=== PATIENT | female | born 1965 | race Caucasian/White ===

== ENCOUNTER → 2018-07-28 | Outpatient (CLI) | payer BC ==
[~2018-07-28] MED LIST: GADOBUTROL 10 MMOL/10 ML VIAL ONE
== END | disposition home or self-care (01) ==
LOC: CFH 13:25
PROVIDERS: ATTEND Surgery
DX: C50.312 Malignant neoplasm of lower-inner quadrant of left female breast (principal); Z85.3 Personal history of malignant neoplasm of breast
CPT/HCPCS: 77049; A9585

== ENCOUNTER 2019-11-13 14:53 | Inpatient (IN) | payer BC ==
[~2019-11-13] VITALS: Ht 172.7 cm; Wt 85.3 kg
[2019-11-13] MEDS ORDERED: ONDANSETRON 2MG/ML, 2ML ONE (15:12)
[2019-11-13] MEDS ORDERED: ONDANSETRON 2MG/ML, 2ML IVPush ONE (15:30)
[2019-11-13] MEDS ORDERED: SODIUM CHLORIDE FLUSH 10ML SYR IVF ONE (15:30)
[2019-11-13] MEDS ORDERED: SODIUM CHLORIDE 0.9% 1,000ML IVBOLUS ONE ×2 (15:30→16:30)
[2019-11-13 15:39] LABS: BASOPHILS # (AUTO) 0.02 x10^3/uL (0-0.1); BASOPHILS % (AUTO) 0 % (0-1); EOSINOPHILS # (AUTO) 0.11 x10^3/uL (0-0.4); EOSINOPHILS % (AUTO) 1 % (1-7); LYMPHOCYTES # (AUTO) 0.74 x10^3/uL (1-3.4); LYMPHOCYTES % (AUTO) 5 % (22-44); MD NO; MEAN CORPUSCULAR HEMOGLOBIN 31.5 pg (27.0-34.8); MEAN CORPUSCULAR HGB CONC 32.7 g/dL (32.4-35.8); MEAN CORPUSCULAR VOLUME 96.3 fL (80-100); MEAN PLATELET VOLUME 7.8 fL (7.4-10.4); MONOCYTES # (AUTO) 0.99 x10^3/uL (0.2-0.8); MONOCYTES % (AUTO) 7 % (2-9); NEUTROPHILS # (AUTO) 13.35 x10^3/uL (1.8-6.8); NEUTROPHILS % (AUTO) 88 % (42-75); PLATELET COUNT 484 x10^3/uL (130-400); RED BLOOD COUNT 4.18 x10^6/uL (3.82-5.3); RED CELL DISTRIBUTION WIDTH 15.3 % (9.6-15.2)
[2019-11-13 15:43] LABS: MICROSCOPIC AUTO
--- NOTE | 2019-11-13 15:51 | NUR ---
PT CAME IN CO OF NVD. PT STATES SHE IS GETTING CHEMO FOR STAGE 4 METASTATIC CANCER. PT LAST CHEMO TREATMENT IS TUESDAY. PT IS RESTING IN [facility]. IV FLUIDS INFUSING. MEDICATED PER JUN. EKG COMPLETE. PT REPORTS "IM FEELING BETTER". BLANKET PROVIDED.
[2019-11-13 15:52] LABS: ALBUMIN 3.1 g/dL (3.4-5.0); ANION GAP 8 mmol/L (5-15); CHLORIDE 96 mmol/L (98-107); CREATININE 1.09 mg/dL (0.55-1.02)
[2019-11-13 15:55] LABS: ALANINE AMINOTRANSFERASE 22 U/L (12-78); ALKALINE PHOSPHATASE 126 U/L (45-117); TOTAL PROTEIN 7.2 g/dL (6.4-8.2)
[2019-11-13 16:13] LABS: CALCIUM 18.9 mg/dL (8.5-10.1)
[2019-11-13] MEDS ORDERED: POTASSIUM CHLORIDE 10% 40 MEQ/30 ML UDC PO ONE (16:30)
--- NOTE | 2019-11-13 16:38 | NUR ---
PT RESTING IN [facility]. EDUCATED ON PLAN OF CARE
--- NOTE | 2019-11-13 17:07 | NUR ---
PT TO CT AT THIS TIME
[2019-11-13] MEDS ORDERED: OMNIPAQUE 350 MG/ML, 100ML BOTTLE ONE ×2 (17:22→17:26)
--- NOTE | 2019-11-13 17:29 | NUR ---
TASK RN: PT PLACED ON ECG MONITORING SECONDARY TO HYPERCALCEMIA. SINUS TACH ON MONITOR. VS WNL. PATIENT/MOTHER UPDATED TO POC (RESULTS/ADMIT) AND DEMONSTRATES UNDERSTANDING. PT REPORTS 1/10 PAIN AND DENIES NEED FOR PAIN MEDICATIONS.
[2019-11-13] MEDS ORDERED: SODIUM CHLORIDE FLUSH 10ML SYR IVF PRN (18:30)
--- NOTE | 2019-11-13 18:50 | NUR ---
PT UP TO [facility]. STANDBY ASSIST
--- NOTE | 2019-11-13 19:10 | NUR ---
PT PROVIDED TURKEY SANDWHICH FROM [employer].
[2019-11-13] MEDS ORDERED: ONDANSETRON 2MG/ML, 2ML IVPush PRN (20:00)
[2019-11-13] MEDS ORDERED: PROMETHAZINE 25 MG/ML, 1ML IM PRN (20:00)
[2019-11-13] MEDS ORDERED: HYDROmorphone 2 MG/ML, 1ML IVPush PRN (20:00)
[2019-11-13] MEDS ORDERED: TEMAZEPAM 15 MG CAPSULE PO PRN (20:00)
[2019-11-13] MEDS ORDERED: ACETAMINOPHEN 325 MG TABLET PO PRN (20:00)
[2019-11-13] MEDS ORDERED: [UNRECOGNIZED DRUG - REMARK] (20:25)
[2019-11-13 21:00] LABS: CALCIUM 17.7 mg/dL (8.5-10.1)
[2019-11-13] MEDS: ENOXAPARIN 40 MG/0.4 ML SQ SCH (21:09)
[2019-11-13] MEDS: SODIUM CHLORIDE 0.9% 1,000 ML IV SCH (21:09)
[2019-11-13 21:32] VITALS: BP 155/96
[2019-11-13] MEDS: CALCITONIN SALMON 200 UNITS/ML, 2ML SQ SCH (22:38)
[2019-11-14 00:15] VITALS: BP 155/94
[2019-11-14] MEDS ORDERED: MAGNESIUM SULFATE 1 GM in SODIUM CHLORIDE 0.9% 50 ML IV ONE (01:00)
[2019-11-14 05:42] LABS: BASOPHILS # (AUTO) 0.01 x10^3/uL (0-0.1); BASOPHILS % (AUTO) 0 % (0-1); EOSINOPHILS # (AUTO) 0.02 x10^3/uL (0-0.4); EOSINOPHILS % (AUTO) 0 % (1-7); LYMPHOCYTES # (AUTO) 0.65 x10^3/uL (1-3.4); LYMPHOCYTES % (AUTO) 5 % (22-44); MD NO; MEAN CORPUSCULAR HEMOGLOBIN 31.1 pg (27.0-34.8); MEAN CORPUSCULAR HGB CONC 32.2 g/dL (32.4-35.8); MEAN CORPUSCULAR VOLUME 96.6 fL (80-100); MEAN PLATELET VOLUME 8.4 fL (7.4-10.4); MONOCYTES # (AUTO) 0.71 x10^3/uL (0.2-0.8); MONOCYTES % (AUTO) 6 % (2-9); NEUTROPHILS # (AUTO) 11.03 x10^3/uL (1.8-6.8); NEUTROPHILS % (AUTO) 89 % (42-75); PLATELET COUNT 459 x10^3/uL (130-400); RED BLOOD COUNT 3.95 x10^6/uL (3.82-5.3); RED CELL DISTRIBUTION WIDTH 15.4 % (9.6-15.2)
[2019-11-14] MEDS: CALCITONIN SALMON 200 UNITS/ML, 2ML SQ SCH ×2 (06:00→18:07)
[2019-11-14 06:01] LABS: ANION GAP 7 mmol/L (5-15); CHLORIDE 105 mmol/L (98-107)
[2019-11-14 06:05] VITALS: BP 149/96
[2019-11-14 06:05] LABS: CREATININE 0.85 mg/dL (0.55-1.02)
[2019-11-14 06:12] LABS: CALCIUM 15.6 mg/dL (8.5-10.1)
[2019-11-14] MEDS ORDERED: POTASSIUM CHLORIDE 20 MEQ TAB.ER.PRT PO ONE (10:00)
[2019-11-14] MEDS: SODIUM CHLORIDE 0.9% 1,000 ML IV SCH ×2 (11:00→17:40)
[2019-11-14 12:06] VITALS: BP 155/98
[2019-11-14] MEDS: ALENDRONATE 10 MG TABLET PO SCH (13:49)
[2019-11-14 18:29] VITALS: BP 176/109
[2019-11-14] MEDS: LABETALOL 5MG/ML, 20ML IVPush PRN (19:48)
[2019-11-14 20:34] VITALS: BP 158/93
[2019-11-14] MEDS: ENOXAPARIN 40 MG/0.4 ML SQ SCH (20:39)
[2019-11-14] MEDS ORDERED: [UNRECOGNIZED DRUG - OTHER] (23:07)
[2019-11-14] MEDS ORDERED: [UNRECOGNIZED DRUG - OTHER] (23:07)
[2019-11-14] MEDS ORDERED: [UNRECOGNIZED DRUG - OTHER] (23:07)
[2019-11-14] MEDS ORDERED: C STATIN (23:07)
[2019-11-14] MEDS ORDERED: [UNRECOGNIZED DRUG - OTHER] (23:07)
[2019-11-14] MEDS ORDERED: [UNRECOGNIZED DRUG - OTHER] (23:07)
[2019-11-14] MEDS ORDERED: [UNRECOGNIZED DRUG - OTHER] (23:07)
[2019-11-14] MEDS ORDERED: [UNRECOGNIZED DRUG - OTHER] (23:07)
[2019-11-14] MEDS ORDERED: [UNRECOGNIZED DRUG - OTHER] (23:07)
[2019-11-14] MEDS ORDERED: CORDYCEPS (23:08)
[2019-11-14] MEDS ORDERED: Thiamine (23:08)
[2019-11-14] MEDS ORDERED: [UNRECOGNIZED DRUG - OTHER] (23:08)
[2019-11-14] MEDS ORDERED: Alpha Lipoic Acid (23:08)
[2019-11-14] MEDS ORDERED: Zofran (23:08)
[2019-11-14] MEDS ORDERED: PANCREATIC ENZYMES (23:08)
[2019-11-14] MEDS ORDERED: Turmeric (23:08)
[2019-11-14] MEDS ORDERED: [UNRECOGNIZED DRUG - OTHER] (23:08)
[2019-11-14] MEDS ORDERED: Naltrexone (23:08)
[2019-11-14] MEDS ORDERED: AHCC (23:08)
[2019-11-14] MEDS ORDERED: UBID100C24 PO (23:08)
[2019-11-15 00:34] VITALS: BP 153/98
[2019-11-15] MEDS: SODIUM CHLORIDE 0.9% 1,000 ML IV SCH ×2 (00:55→13:59)
[2019-11-15] MEDS: CALCITONIN SALMON 200 UNITS/ML, 2ML SQ SCH ×2 (05:48→17:30)
[2019-11-15] MEDS: ALENDRONATE 10 MG TABLET PO SCH (05:49)
[2019-11-15 07:34] VITALS: BP 163/104
[2019-11-15 07:42] LABS: BASOPHILS % (AUTO) 0 % (0-1); EOSINOPHILS # (AUTO) 0.05 x10^3/uL (0-0.4); EOSINOPHILS % (AUTO) 1 % (1-7); LYMPHOCYTES # (AUTO) 0.69 x10^3/uL (1-3.4); LYMPHOCYTES % (AUTO) 7 % (22-44); MD NO; MEAN CORPUSCULAR HEMOGLOBIN 31.2 pg (27.0-34.8); MEAN CORPUSCULAR HGB CONC 32.3 g/dL (32.4-35.8); MEAN CORPUSCULAR VOLUME 96.5 fL (80-100); MEAN PLATELET VOLUME 8.4 fL (7.4-10.4); MONOCYTES # (AUTO) 0.95 x10^3/uL (0.2-0.8); MONOCYTES % (AUTO) 9 % (2-9); NEUTROPHILS # (AUTO) 8.58 x10^3/uL (1.8-6.8); NEUTROPHILS % (AUTO) 84 % (42-75); PLATELET COUNT 428 x10^3/uL (130-400); RED BLOOD COUNT 3.68 x10^6/uL (3.82-5.3); RED CELL DISTRIBUTION WIDTH 15.5 % (9.6-15.2)
[2019-11-15 07:52] LABS: ALBUMIN 2.7 g/dL (3.4-5.0); ANION GAP 5 mmol/L (5-15); CHLORIDE 109 mmol/L (98-107)
[2019-11-15 07:55] LABS: ALANINE AMINOTRANSFERASE 23 U/L (12-78); ALKALINE PHOSPHATASE 115 U/L (45-117); BILIRUBIN,TOTAL 0.4 mg/dL (0.2-1.0); CREATININE 0.81 mg/dL (0.55-1.02); TOTAL PROTEIN 6.5 g/dL (6.4-8.2)
[2019-11-15 08:04] LABS: CALCIUM 14.2 mg/dL (8.5-10.1)
[2019-11-15] MEDS ORDERED: MAGNESIUM SULFATE PMX 2GM/50ML 50 ML IV ONE (09:00)
[2019-11-15] MEDS: POTASSIUM CHLORIDE 20 MEQ TAB.ER.PRT PO SCH ×2 (09:52→15:56)
[2019-11-15 12:07] VITALS: BP 161/107
[2019-11-15] MEDS ORDERED: ZOLEDRONIC ACID 4MG/100ML 100 ML IV ONE (13:30)
[2019-11-15] MEDS ORDERED: ZOLEDRONIC ACID 4 MG in SODIUM CHLORIDE 0.9% 100 ML IVPB ONE (13:30)
[2019-11-15 19:06] VITALS: BP 171/102
[2019-11-15] MEDS: LABETALOL 5MG/ML, 20ML IVPush PRN (19:19)
[2019-11-15 20:33] VITALS: BP 171/98
[2019-11-15] MEDS: ENOXAPARIN 40 MG/0.4 ML SQ SCH (20:39)
[2019-11-15 21:27] VITALS: BP 167/98
[2019-11-16 00:52] VITALS: BP 165/97
[2019-11-16] MEDS: SODIUM CHLORIDE 0.9% 1,000 ML IV SCH ×2 (01:09→10:00)
[2019-11-16 04:59] LABS: BASOPHILS # (AUTO) 0.01 x10^3/uL (0-0.1); BASOPHILS % (AUTO) 0 % (0-1); EOSINOPHILS # (AUTO) 0.16 x10^3/uL (0-0.4); EOSINOPHILS % (AUTO) 2 % (1-7); LYMPHOCYTES # (AUTO) 0.47 x10^3/uL (1-3.4); LYMPHOCYTES % (AUTO) 5 % (22-44); MD NO; MEAN CORPUSCULAR HEMOGLOBIN 31.6 pg (27.0-34.8); MEAN CORPUSCULAR HGB CONC 33.1 g/dL (32.4-35.8); MEAN CORPUSCULAR VOLUME 95.3 fL (80-100); MEAN PLATELET VOLUME 8.1 fL (7.4-10.4); MONOCYTES # (AUTO) 0.66 x10^3/uL (0.2-0.8); MONOCYTES % (AUTO) 7 % (2-9); NEUTROPHILS % (AUTO) 86 % (42-75); PLATELET COUNT 388 x10^3/uL (130-400); RED BLOOD COUNT 3.64 x10^6/uL (3.82-5.3); RED CELL DISTRIBUTION WIDTH 15.6 % (9.6-15.2)
[2019-11-16 05:13] LABS: ALBUMIN 2.7 g/dL (3.4-5.0); ANION GAP 6 mmol/L (5-15); CHLORIDE 106 mmol/L (98-107)
[2019-11-16 05:16] LABS: ALANINE AMINOTRANSFERASE 20 U/L (12-78); ALKALINE PHOSPHATASE 131 U/L (45-117); BILIRUBIN,TOTAL 0.4 mg/dL (0.2-1.0); CREATININE 0.73 mg/dL (0.55-1.02); TOTAL PROTEIN 6.3 g/dL (6.4-8.2)
[2019-11-16] MEDS: CALCITONIN SALMON 200 UNITS/ML, 2ML SQ SCH (05:36)
[2019-11-16] MEDS ORDERED: TRAM50TA2 PO (08:48)
[2019-11-16 08:54] VITALS: BP 166/106
[2019-11-16] MEDS: POTASSIUM CHLORIDE 20 MEQ TAB.ER.PRT PO SCH (08:58)
[2019-11-16 10:28] VITALS: BP 151/93
== END 2019-11-16 11:20 | disposition home or self-care (01) | DRG 542 ==
LOC: ED 16:36 → EDIP 18:06 → 4WST 20:40 → DCLOUNGE 11-16 11:06
PROVIDERS: ADMIT Family Medicine; ATTEND Family Medicine
DX: C79.51 Secondary malignant neoplasm of bone (principal); K85.90 Acute pancreatitis without necrosis or infection, unspecified; G93.41 Metabolic encephalopathy; N17.0 Acute kidney failure with tubular necrosis; E87.1 Hypo-osmolality and hyponatremia; C50.919 Malignant neoplasm of unspecified site of unspecified female breast; E83.42 Hypomagnesemia; E83.52 Hypercalcemia; E86.0 Dehydration; E86.1 Hypovolemia; E87.6 Hypokalemia; K59.00 Constipation, unspecified; R82.71 Bacteriuria; E66.9 Obesity, unspecified; I10 Essential (primary) hypertension; Z80.3 Family history of malignant neoplasm of breast; Z80.42 Family history of malignant neoplasm of prostate; Z85.3 Personal history of malignant neoplasm of breast; Z87.891 Personal history of nicotine dependence; Z88.5 Allergy status to narcotic agent; Z88.8 Allergy status to other drugs, medicaments and biological substances; Z68.28 Body mass index [BMI] 28.0-28.9, adult
CPT/HCPCS: 36415; 74177; 80048; 80053; 81001; 82306; 82310; 82330; 82397; 83690; 83735; 83970; 84443; 85025; 87086; 93005; G0378; J1650; J2405; J3475; J3489; Q9967; J0630; J7030